=== PATIENT | female | born 1930 | race Caucasian/White ===

== ENCOUNTER → 2016-08-31 | Outpatient (CLI) | payer OTHER ==
[~2016-08-31] MED LIST: ASPEC325 PO; CPR500 PO; GABA400C PO; GLIP10TA9 PO; INSUINJ12 SQ; IRON PO; LIRA18IN SC; LPR25 PO; OXYC-609 PO; OXYSR10 PO; ROPI1TAB29 PO; ROSU5TAB PO; [UNRECOGNIZED DRUG - OTHER] PO; losartan/hctz PO
[2016-08-31 13:43] LABS: BASO % 0.2 %; BASO ABS # 0.01 K/uL (0-0.2); COMPLETE YES; EOS % 3.5 %; HEMATOCRIT 37.4 % (37-47); IG% 0.3 %; LYMPH % 13.1 %; LYMPH ABS # 0.83 K/uL (1.2-3.4); MEAN CELL VOLUME 87.4 fL (80-100); MEAN CORPUSCULAR HEMOGLOBIN 29.2 pg (25-34); MEAN CORPUSCULAR HGB CONC 33.4 g/dl (32-36); MEAN PLATELET VOLUME 10.6 fL (7.4-10.4); MONO % 10.4 %; NEUT % 72.5 %; PLATELET COUNT 271 K/uL (130-400); RED BLOOD COUNT 4.28 M/uL (4.2-5.4); WHITE BLOOD COUNT 6.32 K/uL (4.8-10.8)
[2016-08-31 15:11] LABS: ALT/SGPT 21 U/L (12-78); AST/SGOT 21 U/L (15-37); BLOOD UREA NITROGEN 21 mg/dl (7-18); BUN/CREATININE RATIO 16.1 (10-20); CALCIUM 8.7 mg/dl (8.5-10.1); CARBON DIOXIDE 27 mmol/L (21-32); CHLORIDE 107 mmol/L (98-107); GLUCOSE 103 mg/dl (70-99); POTASSIUM 3.9 mmol/L (3.5-5.1); SODIUM 141 mmol/L (136-145)
[2016-08-31 15:14] LABS: ALB/GLOB RATIO 0.8 (0.9-2); ALKALINE PHOSPHATASE 111 U/L (45-117)
== END | disposition home or self-care (01) ==
LOC: C.LABSPEC 13:22
PROVIDERS: ATTEND Family Medicine
DX: R05 Cough (principal); R09.3 Abnormal sputum

== ENCOUNTER → 2016-11-26 | Outpatient (CLI) | payer OTHER ==
[2016-11-26 18:04] LABS: BLOOD UREA NITROGEN 23 mg/dl (7-18); BUN/CREATININE RATIO 18.8 (10-20); CALCIUM 8.8 mg/dl (8.5-10.1); CARBON DIOXIDE 30 mmol/L (21-32); CHLORIDE 107 mmol/L (98-107); GLUCOSE 117 mg/dl (70-99); PHOSPHORUS 3.8 mg/dl (2.5-4.9); POTASSIUM 3.6 mmol/L (3.5-5.1); SODIUM 143 mmol/L (136-145)
[2016-11-26 18:06] LABS: URINE APPEARANCE CLEAR (CLEAR); URINE BILIRUBIN NEG (NEG); URINE COLOR YELLOW; URINE NITRITE NEG (NEG); URINE PH 5.5 (4.5-7.5); URINE SPECIFIC GRAVITY 1.018 (1.000-1.030); UROBILINOGEN NEG (NEG)
[2016-11-26 18:09] LABS: URINE PROTIEN/CREAT RATIO 0.5 (0-0.2); URINE TOTAL PROTEIN 44.1 mg/dl (0-11.9)
[2016-11-26 18:16] LABS: MANUAL MICROSCOPIC REQUIRED? NO; REVIEW REQ? NO
== END | disposition home or self-care (01) ==
LOC: C.LABMFLN 15:01
PROVIDERS: ATTEND Internal Medicine Nephrology
DX: N18.3 Chronic kidney disease, stage 3 (moderate) (principal)

== ENCOUNTER → 2017-02-18 | Outpatient (CLI) | payer OTHER ==
[2017-02-18 18:18] LABS: BLOOD UREA NITROGEN 20 mg/dl (7-18); BUN/CREATININE RATIO 15.5 (10-20); CARBON DIOXIDE 29 mmol/L (21-32); CHLORIDE 103 mmol/L (98-107); GLUCOSE 81 mg/dl (70-99); PHOSPHORUS 4.2 mg/dl (2.5-4.9); POTASSIUM 3.7 mmol/L (3.5-5.1); SODIUM 139 mmol/L (136-145)
== END | disposition home or self-care (01) ==
LOC: C.LABMFLN 14:02
PROVIDERS: ATTEND Internal Medicine Nephrology
DX: N18.3 Chronic kidney disease, stage 3 (moderate) (principal)

== ENCOUNTER → 2017-02-22 | Outpatient (CLI) | payer OTHER ==
[2017-02-22 18:13] LABS: BASO % 0.1 %; BASO ABS # 0.01 K/uL (0-0.2); COMPLETE YES; EOS % 2.7 %; HEMATOCRIT 36.2 % (37-47); IG% 0.4 %; LYMPH % 14.2 %; LYMPH ABS # 0.95 K/uL (1.2-3.4); MEAN CELL VOLUME 88.3 fL (80-100); MEAN PLATELET VOLUME 11.3 fL (7.4-10.4); MONO % 11.3 %; NEUT % 71.3 %; PLATELET COUNT 187 K/uL (130-400); WHITE BLOOD COUNT 6.71 K/uL (4.8-10.8)
[2017-02-22 18:22] LABS: ALT/SGPT 18 U/L (12-78); BLOOD UREA NITROGEN 21 mg/dl (7-18); BUN/CREATININE RATIO 14.9 (10-20); CARBON DIOXIDE 28 mmol/L (21-32); CHLORIDE 102 mmol/L (98-107); GLUCOSE 237 mg/dl (70-99); POTASSIUM 3.7 mmol/L (3.5-5.1); SODIUM 140 mmol/L (136-145)
[2017-02-22 18:27] LABS: ALB/GLOB RATIO 0.8 (0.9-2); ALKALINE PHOSPHATASE 107 U/L (45-117); AST/SGOT 16 U/L (15-37)
== END | disposition home or self-care (01) ==
LOC: C.LABSPEC 17:48
PROVIDERS: ATTEND Family Medicine
DX: R06.02 Shortness of breath (principal)

== ENCOUNTER → 2017-02-25 | Outpatient (CLI) | payer OTHER ==
[2017-02-25 18:17] LABS: URINE PROTIEN/CREAT RATIO 0.3 (0-0.2); URINE TOTAL PROTEIN 43.6 mg/dl (0-11.9)
[2017-02-25 18:23] LABS: URINE APPEARANCE CLEAR (CLEAR); URINE BILIRUBIN NEG (NEG); URINE COLOR YELLOW; URINE NITRITE NEG (NEG); URINE PH 5.5 (4.5-7.5); URINE SPECIFIC GRAVITY 1.019 (1.000-1.030); UROBILINOGEN NEG (NEG)
[2017-02-25 18:29] LABS: MANUAL MICROSCOPIC REQUIRED? NO; REVIEW REQ? NO
== END | disposition home or self-care (01) ==
LOC: C.LABMFLN 14:29
PROVIDERS: ATTEND Internal Medicine Nephrology
DX: R31.29 Other microscopic hematuria (principal)

== ENCOUNTER → 2017-02-26 | Outpatient (CLI) | payer OTHER | END | disposition home or self-care (01) | LOC: C.LABMFLN 11:34 | PROVIDERS: ATTEND Internal Medicine Nephrology | DX: R31.29 Other microscopic hematuria (principal) ==

== ENCOUNTER → 2017-10-04 | Outpatient (CLI) | payer OTHER ==
[2017-10-04 18:35] LABS: BASO % 0.2 %; BASO ABS # 0.02 K/uL (0-0.2); EOS % 2.4 %; HEMOGLOBIN 11.6 g/dL (12.0-16.0); IG# 0.02 K/uL (0.00-0.02); LYMPH % 13.1 %; LYMPH ABS # 1.09 K/uL (1.2-3.4); MEAN CELL VOLUME 88.5 fL (80-100); MEAN CORPUSCULAR HEMOGLOBIN 28.5 pg (25-34); MEAN CORPUSCULAR HGB CONC 32.2 g/dl (32-36); MONO % 7.8 %; MONO ABS # 0.65 K/uL (0.11-0.59); NEUT % 76.3 %; NEUT ABS # 6.31 K/uL (1.4-6.5); PLATELET COUNT 259 K/uL (130-400); RED CELL DISTRIBUTION WIDTH CV 16.7 % (11.5-14.5); RED CELL DISTRIBUTION WIDTH SD 54.6 fL (36.4-46.3); WHITE BLOOD COUNT 8.29 K/uL (4.8-10.8)
[2017-10-04 19:07] LABS: ALBUMIN 3.5 gm/dl (3.4-5.0); ALT/SGPT 15 U/L (12-78); AST/SGOT 14 U/L (15-37); BLOOD UREA NITROGEN 48 mg/dl (7-18); CALCIUM 9.1 mg/dl (8.5-10.1); CARBON DIOXIDE 30 mmol/L (21-32); GLUCOSE 287 mg/dl (70-99); POTASSIUM 4.1 mmol/L (3.5-5.1); SODIUM 137 mmol/L (136-145)
[2017-10-04 19:10] LABS: ALKALINE PHOSPHATASE 151 U/L (45-117); CHOLESTEROL 125 mg/dl (0-200); LDL CHOLESTEROL CALCULATED 46 mg/dl; TOTAL PROTEIN 8.4 gm/dl (6.4-8.2)
[2017-10-05 06:49] LABS: HEMOGLOBIN A1C 7.3 % (4.5-5.6)
== END | disposition home or self-care (01) ==
LOC: C.LABSPEC 18:00
PROVIDERS: ATTEND Family Medicine
DX: E11.9 Type 2 diabetes mellitus without complications (principal)

== ENCOUNTER → 2018-01-04 | Outpatient (CLI) | payer OTHER ==
[2018-01-04 17:57] LABS: BASO % 0.5 %; BASO ABS # 0.04 K/uL (0-0.2); EOS % 3.1 %; EOS ABS # 0.24 K/uL (0-0.5); HEMATOCRIT 39.2 % (37-47); HEMOGLOBIN 12.9 g/dL (12.0-16.0); IG# 0.03 K/uL (0.00-0.02); LYMPH % 14.2 %; MEAN CELL VOLUME 89.1 fL (80-100); MEAN CORPUSCULAR HEMOGLOBIN 29.3 pg (25-34); MEAN CORPUSCULAR HGB CONC 32.9 g/dl (32-36); MEAN PLATELET VOLUME 11.6 fL (7.4-10.4); MONO % 8.9 %; MONO ABS # 0.69 K/uL (0.11-0.59); NEUT % 72.9 %; NEUT ABS # 5.64 K/uL (1.4-6.5); PLATELET COUNT 240 K/uL (130-400); RED CELL DISTRIBUTION WIDTH CV 15.3 % (11.5-14.5); RED CELL DISTRIBUTION WIDTH SD 50.1 fL (36.4-46.3); WHITE BLOOD COUNT 7.74 K/uL (4.8-10.8)
[2018-01-04 18:27] LABS: ALBUMIN 3.4 gm/dl (3.4-5.0); ALKALINE PHOSPHATASE 150 U/L (45-117); ALT/SGPT 19 U/L (12-78); AST/SGOT 18 U/L (15-37); BLOOD UREA NITROGEN 36 mg/dl (7-18); CALCIUM 9.2 mg/dl (8.5-10.1); CARBON DIOXIDE 31 mmol/L (21-32); CHOLESTEROL 117 mg/dl (0-200); CREATININE 1.64 mg/dl (0.60-1.20); GLUCOSE 324 mg/dl (70-99); LDL CHOLESTEROL CALCULATED 17 mg/dl; POTASSIUM 4.2 mmol/L (3.5-5.1); SODIUM 137 mmol/L (136-145); TOTAL PROTEIN 8.3 gm/dl (6.4-8.2)
[2018-01-05 05:52] LABS: HEMOGLOBIN A1C 9.5 % (4.5-5.6)
== END | disposition home or self-care (01) ==
LOC: C.LABSPEC 17:41
PROVIDERS: ATTEND Family Medicine
DX: E11.9 Type 2 diabetes mellitus without complications (principal); I10 Essential (primary) hypertension